=== PATIENT | male | born 1955 | race Caucasian/White ===

== ENCOUNTER 2025-05-19 18:01 | Emergency (ER) | payer MEDICARE ==
[2025-05-19 19:53] LABS: #Basophils 0.0 thou/uL (0.0-0.2); #Eosinophils 0.2 thou/uL (0.0-0.7); #Lymphocytes 0.8 thou/uL (1.20-3.40); #Monocytes 0.5 thou/uL (0.11-0.59); #Neutrophils 3.8 thou/uL (1.40-6.50); %Basophils 0.7 % (0.0-1.0); %Eosinophils 3.9 % (0.0-10.0); %Lymphocytes 15.6 % (21.0-51.0); %Monocytes 9.6 % (0.0-10.0); %Neutrophils 70.2 % (42.0-75.0); Hematocrit 29.9 % (42.0-52.0); Hemoglobin 10.2 g/dL (14.0-18.0); Mean Corpuscular Hemoglobin 30.2 pg (27.0-31.0); Mean Corpuscular Volume 88.2 fl (78.0-98.0); Platelet Count 132 10x3/uL (130-400); Red Blood Cell (RBC) Count 3.38 mill/uL (4.70-6.10); White Blood Cell (WBC) Count 5.4 10x3/uL (4.8-10.8)
[2025-05-19 20:04] LABS: ALT (SGPT) 7 U/L (Less than 45); AST (SGOT) 12 U/L (11-34); Albumin 3.8 g/dL (3.1-4.5); Alkaline Phosphatase 62 U/L (40-110); Anion Gap 17 mmol/L (10-20); BUN (Urea Nitrogen) 12 mg/dL (8.4-25.7); Bilirubin, Total 0.6 mg/dL (0.3-1.2); Calc. Creatinine Clearance 0 mL/min (70-130); Calcium 9.5 mg/dL (7.8-10.44); Carbon Dioxide 31 mmol/L (23-31); Chloride 95 mmol/L (98-107); Globulin 3.0 g/dL (2.4-3.5); Glucose 86 mg/dL (83-110); Potassium 3.5 mmol/L (3.5-5.1); Sodium 139 mmol/L (136-145)
[2025-05-19] MEDS ORDERED: cefTRIAXone (ROCEPHIN) 2 GM VIAL ONE (21:55)
[2025-05-19] MEDS ORDERED: Azithromycin 500 MG VIAL ONE (22:23)
== END 2025-05-19 20:40 | disposition home or self-care (01) ==
LOC: NAV ERS 18:01
DX: R10.9 Unspecified abdominal pain (principal); I10 Essential (primary) hypertension; E78.5 Hyperlipidemia, unspecified; F17.210 Nicotine dependence, cigarettes, uncomplicated; Z86.73 Personal history of transient ischemic attack (TIA), and cerebral infarction without residual deficits; Z79.82 Long term (current) use of aspirin; Z79.899 Other long term (current) drug therapy
CPT/HCPCS: 74176; 80053; 85025; J0456; J0696; J2919; J7050; J7620; Q0162